=== PATIENT | male | born 1990 | race Hispanic/Latino ===

== ENCOUNTER 2016-05-16 20:54 | Emergency (ER) | payer OTHER ==
[~2016-05-16] VITALS: Ht 190.5 cm; Wt 108.8 kg
[2016-05-16] MEDS ORDERED: AMOXICILLIN500 MG PO (22:18)
[2016-05-16 22:51] VITALS: BP 142/78
== END 2016-05-16 22:51 | disposition home or self-care (01) ==
LOC: EME 20:54
DX: H66.91 Otitis media, unspecified, right ear (principal); H61.22 Impacted cerumen, left ear; R05 Cough
CPT/HCPCS: 99281; 99283